=== PATIENT | male | born 1950 | race Caucasian/White ===

== ENCOUNTER 2016-12-17 07:32 | Day surgery (SDC) | payer MEDICARE ==
--- NOTE | 2016-12-06 12:27 | P.GSHP ---
History of Present Illness H&P Date: 12/06/16 Chief Complaint: Left inguinal hernia Patient seen in the office with complaints of a bulge in the left groin. This is painful at times. It is been there for 10 years but only recently has had discomfort there. Denies nausea vomiting. No change in bowel habits. He has a history of previous open repair in 2003 on the right side. Pain does radiate to the testicle at times. Past Medical History Past Medical History: No Reported History Additional Past Medical History / Comment(s): chronic cough, FX NOSE, PASSING OUT X 3,CHRONIC RASH TO LEGS AND ARMS History of Any Multi-Drug Resistant Organisms: None Reported Past Surgical History: Hernia Repair Additional Past Surgical History / Comment(s): COLONOSCOPY Additional Past Anesthesia/Blood Transfusion Reaction / Comment(s): HAD HARD TIME WAKING UP AFTER COLONOSCOPY Smoking Status: Never smoker - Past Family History Brother(s) Family Medical History: Cancer Additional Family Medical History / Comment(s): PROSTATE Medications and Allergies Home Medications Medication Instructions Recorded Confirmed Type Montelukast Sodium [Singulair] 10 mg PO HS 10/14/14 10/25/14 History Focus Select Eye Vitamin 1 tab PO DAILY 10/25/14 10/25/14 History Naturemade Vitamin C Drink 1 dose PO DAILY PRN 10/25/14 10/25/14 History guaiFENesin-DM 100-10MG/5ML 10 ml PO DAILY PRN 10/25/14 10/25/14 History [Robitussin Dm] Allergies Allergy/AdvReac Type Severity Reaction Status Date / Time No Known Allergies Allergy Verified 10/25/14 12:53 Surgical - Exam Physical exam: General: Well-developed, well-nourished HEENT: Normocephalic, sclerae nonicteric Abdomen: Nontender, nondistended, reducible left inguinal hernia noted, both testes normal Extremities: No edema Neuro: Alert and oriented Assessment and Plan (1) Left inguinal hernia Narrative/Plan: Patient I discussed the options of laparoscopic versus open repair. The patient is not interested in a laparoscopic approach as he felt he did quite well with the prior surgery in 2003. The risks of bleeding, infection, chronic pain, recurrence, and visceral injury were discussed. He understands and wishes to proceed. Status: Acute
[~2016-12-17 07:32] MED LIST: DEXAMETHASONE SOD PHOSPHATE 10 MG/ML 1 ML VIAL IV ONE; HEPARIN SODIUM,PORCINE 5,000 UNIT/ML 1 ML VIAL SQ ONE; HYDROmorphone 1 MG/ML 1 ML SYRINGE IVP PRN; LACTATED RINGERS 1,000 ML IV SCH; LIDOCAINE 1% 20 ML VIAL (10MG/ML) FOR IV START INTRADERMA PRN; ONDANSETRON 4 MG/2 ML VIAL IVP ONE; ceFAZolin 2 GM in SODIUM CHLORIDE 0.9% 100 ML IVPB ONE
[2016-12-17] MEDS ORDERED: BUPIVACAIN-EPI 0.25%-1:200,000 30 ML VIAL SQ ONE ×2 (08:08)
[2016-12-17 08:09] VITALS: TEMP 96.8
[2016-12-17] MEDS ORDERED: SUCCINYLCHOLINE CHLORIDE 100 MG/5 ML SYR IV ONE (08:31)
[2016-12-17] MEDS ORDERED: PROPOFOL 10 MG/ML 20 ML VIAL IV ONE (08:31)
[2016-12-17] MEDS ORDERED: LIDOCAINE 1% INJ 10MG/ML (20 ML MDV) ONE (08:31)
[2016-12-17] MEDS ORDERED: NEOSTIGMINE 1 MG/ML 10 ML VIAL ONE (08:31)
[2016-12-17] MEDS ORDERED: ROCURONIUM BROMIDE 10 MG/ML 10 ML VIAL IV ONE (08:31)
[2016-12-17] MEDS ORDERED: MIDAZOLAM 2 MG/2 ML VIAL ONE (08:31)
[2016-12-17] MEDS ORDERED: fentaNYL (PF) 50 MCG/ML 2 ML AMP ONE (08:31)
[2016-12-17] MEDS ORDERED: LACTATED RINGERS 1,000 ML IV ONE ×2 (08:31→09:05)
[2016-12-17] MEDS ORDERED: GLYCOPYRROLATE 0.2 MG/ML 2 ML VIAL ONE (08:31)
[2016-12-17] MEDS ORDERED: HYDROcodone/APAP 5-325MG 1 EACH TAB PO PRN (09:48)
[2016-12-17] MEDS ORDERED: NALOXONE 0.4 MG/ML 1 ML VIAL IV PRN (09:48)
--- NOTE | 2016-12-17 10:02 | P.PCN ---
Date of Procedure: 12/17/16 Preoperative Diagnosis: Postoperative Diagnosis: Procedure(s) Performed: PREOPERATIVE DIAGNOSIS: Left inguinal hernia POSTOPERATIVE DIAGNOSIS: Same PROCEDURE: Left inguinal herniorrhaphy SURGEON: Lilian EBL: Minimal ANESTHESIA: General COMPLICATIONS: None OPERATIVE PROCEDURE: The patient is brought and placed on the operating table in the supine position. The patient was placed under general anesthesia at that time. And incision was made obliquely in the left groin. The subcutaneous tissues were dissected using electro cautery. The external oblique was incised with a scalpel. This was lengthened using a Metzenbaum scissors. The spermatic cord structures were encircled with a [place] drain and dissected carefully. The patient had a direct hernia defect. A portion of the attenuated transversalis fascia was excised. The preperitoneal space was carefully dissected. A medium Prolene hernia system was chosen. The inner circular portion of the mesh was placed within the pre-peroneal space and flattened out appropriately. The outer oval portion of mesh was slit and wrapped around the spermatic cord and sutured back to itself. The mesh was then sutured to the pubic tubercle, the folding edge of the inguinal ligament, and the conjoined tendon. The external oblique was then reapproximated using a running 2-0 Vicryl suture. The subcutaneous tissues were reapproximated using interrupted 3-0 Vicryl sutures and the skin using a running 4-0 Monocryl stitch. Steri-Strips and sterile dressings then applied. At the end of the procedure the sponge needle and counts were all correct. DISPOSITION: Stable to recovery room Implants: Indications for Procedure: Operative Findings: Description of Procedure:
[2016-12-17 11:48] VITALS: RESP 18
[2016-12-17 14:05] VITALS: BP 90/62; PULSE 69
[2016-12-17] MEDS ORDERED: TAMSULOSIN 0.4 MG CAP.ER.24H PO STA (14:15)
== END 2016-12-17 14:54 | disposition home or self-care (01) ==
LOC: OR 07:32
PROVIDERS: ATTEND Surgery
DX: K40.90 Unilateral inguinal hernia, without obstruction or gangrene, not specified as recurrent (principal); K21.9 Gastro-esophageal reflux disease without esophagitis; R05 Cough; Z79.82 Long term (current) use of aspirin; Z79.899 Other long term (current) drug therapy
CPT/HCPCS: 49505; C1781; J2250; J1644; J1100; J2710; J0690; J2405; J2001; J3010; J0330; J2704

== ENCOUNTER 2016-12-19 19:41 | Emergency (ER) | payer MEDICARE ==
--- NOTE | 2016-12-19 21:05 | ED ---
General Adult HPI - General Chief complaint: Recheck/Abnormal Lab/Rx Stated complaint: Male Time Seen by Provider: 12/19/16 20:57 Source: patient, RN notes reviewed Mode of arrival: ambulatory Limitations: no limitations - History of Present Illness Initial comments: 66-year-old male presents to the emergency department with a chief complaint of inability to urinate. Patient states that he had hernia repair by Dr. franco on Thursday. Patient states that he went home and he had no problem urinating yesterday but today he is only been able to dribble very tiny amounts out is feeling a lot of fullness in the bladder. Patient states she's having a lot of lower abdominal discomfort with this. Patient denies any fever chills cough cold Raynaud's. Patient denies any odor to the urine. Patient states that he was concerned due to his symptoms so he thought that he should be evaluated. Patient denies any recent fever, chills, shortness of breath, chest pain, back pain, nausea vomiting, numbness or tingling, dysuria or hematuria, constipation or diarrhea, headaches or visual changes, or any other current symptoms. - Related Data Home Medications Medication Instructions Recorded Confirmed Montelukast Sodium [Singulair] 10 mg PO HS 10/14/14 12/17/16 Focus Select Eye Vitamin 1 tab PO DAILY 10/25/14 12/17/16 Naturemade Vitamin C Drink 1 dose PO DAILY PRN 10/25/14 12/17/16 Ascorbic Acid [Vitamin C] 500 mg PO DAILY 12/11/16 12/17/16 Cholecalciferol (Vitamin D3) 2,000 unit PO DAILY 12/11/16 12/17/16 [Vitamin D3] Previous Rx's Medication Instructions Recorded Hydrocodone/Acetaminophen [[place] 1 - 2 each PO Q4HR PRN #30 tab 12/17/16 5-325] Allergies Allergy/AdvReac Type Severity Reaction Status Date / Time dust AdvReac Cough Uncoded 12/19/16 20:22 Review of Systems ROS Statement: Those systems with pertinent positive or pertinent negative responses have been documented in the HPI. ROS Other: All systems not noted in ROS Statement are negative. Past Medical History Past Medical History: No Reported History Additional Past Medical History / Comment(s): chronic cough, FX NOSE History of Any Multi-Drug Resistant Organisms: None Reported Past Surgical History: Hernia Repair Additional Past Surgical History / Comment(s): COLONOSCOPY Additional Past Anesthesia/Blood Transfusion Reaction / Comment(s): HAD HARD TIME WAKING UP AFTER COLONOSCOPY Past Psychological History: No Psychological Hx Reported Smoking Status: Never smoker Past Alcohol Use History: None Reported Past Drug Use History: None Reported - Past Family History Brother(s) Family Medical History: Cancer Additional Family Medical History / Comment(s): PROSTATE General Exam - General Exam Comments Initial Comments: General: The patient is awake and alert, in no distress, and does not appear acutely ill. Eye: Pupils are equal. Ears, nose, mouth and throat: There are moist mucous membranes. Neck: The neck is supple, there is no tenderness. Cardiovascular: There is a regular rate and rhythm. No murmur, rub or gallop is appreciated. Respiratory: Lungs are clear to auscultation, respirations are non-labored, breath sounds are equal. No wheezes, stridor, rales, or rhonchi. Gastrointestinal: Hard and distended over the bladder non-tender abdomen without masses or organomegaly noted. There is no rebound or guarding present. No CVA tenderness. Bowel sounds are unremarkable. Neurological: CN II-XII intact, There are no obvious motor or sensory deficits. Coordination appears grossly intact. Speech is normal. Skin: Skin is warm and dry and no rashes or lesions are noted. Psychiatric: Cooperative, appropriate mood & affect, normal judgment. Limitations: no limitations Course Vital Signs 12/19/16 20:19 Temperature 98.9 F Pulse Rate 75 Respiratory 18 Rate Blood Pressure 138/75 O2 Sat by Pulse 98 Oximetry Medical Decision Making - Medical Decision Making 66-year-old male presents to the emergency department with a chief complaint of urinary retention at this time patient is found to be in urinary retention urine was reviewed and negative. This time is likely due to the recent procedure. This time we discussed close follow-up with urology and he is given information. Discussed return parameters all patient's questions. He stated he understood. Plan. All questions have been answered. He will be discharged. - Lab Data Lab Results 12/19/16 Range/Units 21:22 Urine Color Yellow Urine Appearance Clear (Clear) Urine pH 7.0 (5.0-8.0) Ur Specific [place] 1.009 (1.001-1.035) Urine Protein Negative (Negative) Urine Glucose (UA) Negative (Negative) Urine Ketones Trace H (Negative) Urine Blood Negative (Negative) Urine Nitrite Negative (Negative) Urine Bilirubin Negative (Negative) Urine Urobilinogen <2.0 (<2.0) mg/dL Ur Leukocyte Esterase Negative (Negative) Disposition Clinical Impression: Urinary retention Disposition: HOME SELF-CARE Condition: Stable Instructions: Urinary Retention in Men (ED) Additional Instructions: Please follow up with family doctor if symptoms have not improved over the next two days. Please return to the emergency room if your symptoms increase or worsen or for any other concerns. Referrals: Odalis Ravi MD [Primary Care Provider] - 1-2 days Holland Womack MD [STAFF PHYSICIAN] - 1-2 days Time of Disposition: 22:02
[2016-12-19 21:55] LABS: Appearance,Urine Clear (Clear); Bilirubin,Urine Negative (Negative); Glucose,Urine (UA) Negative (Negative); Ketones,Urine Trace (Negative); Leukocyte Esterase,Urine Negative (Negative); Nitrite,Urine Negative (Negative); Protein,Urine Negative (Negative); Specific Gravity,Urine 1.009 (1.001-1.035); UA Billing (MACRO vs. MICRO) CHEM; Urobilinogen,Urine <2.0 mg/dL (<2.0)
[2016-12-19 22:17] VITALS: BP 142/66; PULSE 79; RESP 16; TEMP 98
== END 2016-12-19 22:16 | disposition home or self-care (01) ==
LOC: EC 19:41
DX: R33.9 Retention of urine, unspecified (principal); Z98.890 Other specified postprocedural states; Z91.09 Other allergy status, other than to drugs and biological substances; Z79.899 Other long term (current) drug therapy
CPT/HCPCS: 51702; 51798; 81003; 87086; 99284

== ENCOUNTER → 2017-01-12 | Outpatient (CLI) | payer MEDICARE ==
--- NOTE | 2017-01-12 13:55 | US ---
EXAMINATION TYPE: US bladder DATE OF EXAM: 01/12/2017 COMPARISON: NONE CLINICAL HISTORY: N40.1 Benign prostatic hyperplasia with lower urinary tract symptoms. EXAM MEASUREMENTS: Post Void Residual Volume: 14.2 ml technically was second post void as patient still had 239.3ml aft er voiding 5 minutes prior to initial US exam as patient could no longer wait for order clarification from physician's office. Color Doppler performed to assess ureteral jets. Bilateral Jets seen: yes Normal Post Void Residual (less than 50ml): yes, at second post void assessment. Enlarged prostat e gland is noted with volume of 48.5ml (nl <30 ml). The enlarged prostate gland places mass effect up on the urinary bladder. No trabeculation is seen of the urinary bladder wall. No urinary bladder wall thickening. IMPRESSION: 1. Post void residual of 239.3 mL 5 minutes after voiding with normal post void residual after the se cond attempt. 2. Enlarged and heterogenous prostate gland with impression upon the urinary bladder.
== END | disposition home or self-care (01) ==
LOC: RADUSWWP 12:26
PROVIDERS: ATTEND Family Medicine
DX: N40.0 Benign prostatic hyperplasia without lower urinary tract symptoms (principal)
CPT/HCPCS: 76857

== ENCOUNTER → 2017-01-30 | Outpatient (CLI) | payer MEDICARE ==
--- NOTE | 2017-01-30 14:35 | US ---
EXAMINATION TYPE: US extremity nonvasculr ltd LT DATE OF EXAM: 01/30/2017 COMPARISON: NONE CLINICAL HISTORY: M71.22 SYNOVIAL CYST OF POPLITEAL SPACE LT KNEE. 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 Complex fluid collection in the left popliteal fossa most likely related to popliteal cyst.
== END | disposition home or self-care (01) ==
LOC: RADUSWWP 12:13
PROVIDERS: ATTEND Family Medicine
DX: M71.22 Synovial cyst of popliteal space [Baker], left knee (principal)

== ENCOUNTER → 2018-01-26 | Outpatient (CLI) | payer MEDICARE, OTHER ==
--- NOTE | 2018-01-27 09:35 | CT ---
EXAMINATION TYPE: CT pelvis w con DATE OF EXAM: 01/26/2018 COMPARISON: None HISTORY: PELVIC TIGHTNESS, HX OF HERNIA CT DLP: 477 mGycm Automated exposure control for dose reduction was used. CONTRAST: Performed with IV Contrast, patient injected with 100 mL of Isovue 300. CT of the pelvis was performed from the lower level of the kidneys through the inferior pubic rami. GI contrast was utilized. FINDINGS: I do not see evidence for hernia at this time. The prostate gland is enlarged and demonstrates transv erse measurement of 5.9 cm. No pelvic masses are identified. There is no evidence for adenopathy. Uri nary bladder is unremarkable. Visualized gastrointestinal tract is of normal caliber. Degenerative ch peyton lumbar spine with grade 1 anterolisthesis L5 on S1. IMPRESSION: 1. PROSTATOMEGALY. 2. NO EVIDENCE FOR HERNIA OR ACUTE PROCESS.
== END | disposition home or self-care (01) ==
LOC: RADCTMAIN 15:52
PROVIDERS: ATTEND Family Medicine
DX: N40.0 Benign prostatic hyperplasia without lower urinary tract symptoms (principal)
CPT/HCPCS: 72193; Q9967

== ENCOUNTER → 2018-03-23 | Day surgery (SDC) | payer MEDICARE, OTHER ==
[2018-03-19 15:39] VITALS: BMI 19.1
[~2018-03-23] MED LIST changes: -DEXAMETHASONE SOD PHOSPHATE 10 MG/ML 1 ML VIAL IV ONE; -HEPARIN SODIUM,PORCINE 5,000 UNIT/ML 1 ML VIAL SQ ONE; -HYDROmorphone 1 MG/ML 1 ML SYRINGE IVP PRN; +LACTATED RINGERS 1,000 ML IV ONE; -LACTATED RINGERS 1,000 ML IV SCH; +LIDOCAINE 1% 20 ML VIAL (10MG/ML) FOR IV START INTRADERMA ONE; -LIDOCAINE 1% 20 ML VIAL (10MG/ML) FOR IV START INTRADERMA PRN; -ONDANSETRON 4 MG/2 ML VIAL IVP ONE; +PROPOFOL 10 MG/ML 20 ML VIAL IV ONE; -ceFAZolin 2 GM in SODIUM CHLORIDE 0.9% 100 ML IVPB ONE
[2018-03-23 09:23] VITALS: TEMP 98
[2018-03-23 10:41] VITALS: PULSE 58
--- NOTE | 2018-03-23 10:45 | P.PCN ---
Date of Procedure: 03/23/18 Procedure(s) Performed: procedure: Total colonoscopy. Preoperative diagnosis: Screening for neoplasia, patient has history of polyps. Postoperative diagnosis: Exam within normal limits. Preparation: HalfLytely prep. Sedation: Was provided by anesthesia. Brief clinical history: The patient is a 67-year-old male who is scheduled for this evaluation for screening for neoplasia because of history of polyps. His last exam was in 2008. The patient has no abdominal complaints, bleeding or anemia. Procedure: With the patient on his left lateral decubitus position and after informed consent and adequate sedation, the perianal area was inspected and it did not show any fissures or fistulas. There were no masses felt on digital rectal examination. The Olympus CFQ 160L video colonoscope was initially used and was inserted in the rectum and advanced in the usual fashion, however, I was not able to advance it safely in the sigmoid. The endoscope was exchanged for the PCFH 190L video colonoscope which was advanced without difficulty to the cecum. The mucosa appeared healthy. No polyps or tumors were seen or any obvious diverticular disease or other pathology. I retroflexed the endoscope in the rectum before the endoscope was withdrawn. The patient tolerated the procedure well. Plan: The patient was reassured. He will follow up with you as planned and I recommended repeat exam in 10 years depending on his overall health at that time.
[2018-03-23 11:07] VITALS: BP 122/73; RESP 18
== END | disposition home or self-care (01) ==
LOC: ORWHC2ENDO 08:36
DX: Z12.11 Encounter for screening for malignant neoplasm of colon (principal); Z86.010 Personal history of colon polyps; J44.9 Chronic obstructive pulmonary disease, unspecified; I45.9 Conduction disorder, unspecified; Z79.899 Other long term (current) drug therapy; Z87.891 Personal history of nicotine dependence
CPT/HCPCS: J2704; G0105; 45378

== ENCOUNTER → 2018-08-11 | Outpatient (CLI) | payer MEDICARE, OTHER | LOC: RADUSWWP 06:46 | DX: I73.89 Other specified peripheral vascular diseases (principal) | CPT/HCPCS: 93922 ==

== ENCOUNTER 2019-01-25 20:15 | Emergency (ER) | payer MEDICARE, OTHER ==
[2019-01-25] MEDS ORDERED: IPRATROPIUM-ALBUTEROL 3 ML NEB INHALATION STA (21:03)
--- NOTE | 2019-01-25 21:05 | ED ---
General Adult HPI - General Chief complaint: Shortness of Breath Stated complaint: GYPSY, Sore throat Time Seen by Provider: 01/25/19 20:51 Source: patient, RN notes reviewed Mode of arrival: ambulatory Limitations: no limitations - History of Present Illness Initial comments: Patient is a pleasant 68-year-old male presenting to emergency department with sore throat. Onset of symptoms was yesterday. Symptoms have progressively worsened since that time. Patient does complain of a scratchy throat. Patient states he feels somewhat short of breath. In between his throat and his nose. Patient does not feel his dyspnea is related to his lungs. Patient does have a history of asthma however does not feel that is causing his symptoms. No fevers. Patient states it does have to swallow. - Related Data Home Medications Medication Instructions Recorded Confirmed Montelukast Sodium [Singulair] 10 mg PO HS 10/14/14 01/25/19 Ascorbic Acid [Vitamin C with Olya 500 mg PO DAILY 03/19/18 01/25/19 Hips] Phenylephrine/Dm/Acetaminop/GG 5 ml PO BID PRN 01/25/19 01/25/19 [Mucinex Fast-Max Cold-Flu Liq] Vit C/E/Zn/Coppr/Lutein/Zeaxan 1 cap PO DAILY 01/25/19 01/25/19 [Preservision Areds 2 Softgel] Vitamin E 100 unit PO DAILY 01/25/19 01/25/19 Previous Rx's Medication Instructions Recorded Amoxic-Pot Clav 875-125Mg 1 tab PO Q12HR #14 tablet 01/25/19 [Augmentin 875-125] Dexamethasone 4 mg PO BID #6 tablet 01/25/19 Allergies Allergy/AdvReac Type Severity Reaction Status Date / Time mold AdvReac Unknown Cough Verified 01/25/19 21:16 dust AdvReac Cough Uncoded 01/25/19 21:16 Review of Systems ROS Statement: Those systems with pertinent positive or pertinent negative responses have been documented in the HPI. ROS Other: All systems not noted in ROS Statement are negative. Constitutional: Denies: fever Eyes: Denies: eye pain ENT: Reports: throat pain, congestion. Denies: ear pain Respiratory: Reports: as per HPI, cough (Slightly more than normal) Cardiovascular: Denies: chest pain Endocrine: Denies: fatigue Gastrointestinal: Denies: abdominal pain Genitourinary: Denies: dysuria Musculoskeletal: Denies: back pain Skin: Denies: rash Neurological: Denies: weakness Past Medical History Past Medical History: Cancer Additional Past Medical History / Comment(s): HX OF COLON POLYPS, YEAR ROUND ALLERGIES, CHRONIC COUGH., HX FX NOSE., ENLARGED PROSTATE. History of Any Multi-Drug Resistant Organisms: None Reported Past Surgical History: Hernia Repair, Orthopedic Surgery Additional Past Surgical History / Comment(s): ARTHROSCOPY LEFT KNEE, COLONOSCOPY, JUSTINA INGUINAL HERNIA. Past Anesthesia/Blood Transfusion Reactions: Previous Problems w/ Anesthesia Additional Past Anesthesia/Blood Transfusion Reaction / Comment(s): HAD HARD TIME WAKING UP AFTER PREV. COLONOSCOPY AND BLOOD PRESSURE DROPPED. Past Psychological History: No Psychological Hx Reported Smoking Status: Never smoker Past Alcohol Use History: Rare Past Drug Use History: None Reported - Past Family History Brother(s) Family Medical History: Cancer Additional Family Medical History / Comment(s): PROSTATE General Exam Limitations: no limitations General appearance: alert, in no apparent distress Head exam: Present: atraumatic Eye exam: Present: normal appearance, PERRL ENT exam: Present: other (Mild pharyngeal cobblestoning) Neck exam: Present: normal inspection. Absent: tenderness, meningismus, lymphadenopathy Respiratory exam: Present: rhonchi. Absent: respiratory distress, accessory muscle use Cardiovascular Exam: Present: regular rate, normal rhythm GI/Abdominal exam: Present: soft. Absent: tenderness Extremities exam: Present: normal inspection. Absent: pedal edema, calf tenderness Neurological exam: Present: alert Psychiatric exam: Present: normal affect, normal mood Skin exam: Present: normal color Course Vital Signs 01/25/19 01/25/19 01/25/19 20:40 20:44 21:45 Temperature 98.8 F Pulse Rate 90 74 Respiratory 22 16 Rate Blood Pressure 111/73 O2 Sat by Pulse 99 98 Oximetry 01/25/19 21:54 Temperature Pulse Rate 76 Respiratory 16 Rate Blood Pressure O2 Sat by Pulse Oximetry Medical Decision Making - Medical Decision Making Patient reevaluated and resting comfortably in bed. Patient and family updated on results and need for follow-up. - Lab Data Lab Results 01/25/19 Range/Units 21:22 Group A Strep Rapid Negative (Negative) - Radiology Data Radiology results: image reviewed (Chest x-ray and soft tissue neck x-ray shows no acute process) Disposition Clinical Impression: Sinusitis, Pharyngitis Disposition: HOME SELF-CARE Condition: Stable Instructions (If sedation given, give patient instructions): Pharyngitis (ED), Sinusitis (ED) Additional Instructions: Please follow-up with primary care physician in the next day or 2 for recheck. Return for difficulty in breathing, unable to swallow, fevers, worsening symptoms or any other concerns. Prescriptions: Amoxic-Pot Clav 875-125Mg [Augmentin 875-125] 1 tab PO Q12HR #14 tablet Dexamethasone 4 mg PO BID #6 tablet Is patient prescribed a controlled substance at d/c from ED?: No Referrals: Odalis Ravi MD [Primary Care Provider] - 1-2 days Time of Disposition: 22:52
--- NOTE | 2019-01-25 22:32 | XR ---
EXAM: XR Chest, 2 Views CLINICAL HISTORY: Dyspnea TECHNIQUE: Frontal and lateral views of the chest. COMPARISON: Chest x-ray dated 10/14/2014 FINDINGS: Lungs: Unremarkable. No consolidation. Pleural space: Unremarkable. No pneumothorax. Heart: Unremarkable. No cardiomegaly. Mediastinum: Unremarkable. Bones/joints: Unremarkable. IMPRESSION: Normal chest x-rays.
--- NOTE | 2019-01-25 22:33 | XR ---
EXAM: XR Soft Tissue Neck CLINICAL HISTORY: Pain TECHNIQUE: Frontal and lateral views of the soft tissues of the neck. COMPARISON: No relevant prior studies available. FINDINGS: Airway: Airways are patent. Bones/joints: No acute fracture or traumatic malalignment. Multilevel degenerative changes. Soft tissues: Unremarkable. No abnormal soft tissue prominence. Normal epiglottis. IMPRESSION: No acute findings.
[2019-01-25] MEDS ORDERED: DEXAMETHASONE 4 MG TAB PO STA (22:52)
[2019-01-25 23:10] VITALS: BP 134/80; PULSE 98; RESP 18; TEMP 99.3
== END 2019-01-25 23:16 | disposition home or self-care (01) ==
LOC: EC 20:15
DX: J02.9 Acute pharyngitis, unspecified (principal); J32.9 Chronic sinusitis, unspecified; J45.909 Unspecified asthma, uncomplicated; Z91.048 Other nonmedicinal substance allergy status; Z79.899 Other long term (current) drug therapy; Z85.9 Personal history of malignant neoplasm, unspecified
CPT/HCPCS: 94640; 87081; 87430; 70360; 71046; 99285; J8540

== ENCOUNTER → 2019-07-12 | Outpatient (CLI) | payer OTHER ==
[2019-07-12 12:54] LABS: African American GFR (CKD) >90 (>60 ml/min/1.73 sqM); Blood Urea Nitrogen 14 mg/dL (9-20); Non-African American GFR(CKD) 84 (>60 ml/min/1.73 sqM)
--- NOTE | 2019-07-14 19:42 | CT ---
EXAMINATION TYPE: CT abdomen pelvis wo/w con DATE OF EXAM: 07/13/2019 COMPARISON: CT pelvis 01/26/2018 HISTORY: Lower abdominal pain CT DLP: 364.3 mGycm Automated exposure control for dose reduction was used. TECHNIQUE: Helical acquisition of images was performed from the lung bases through the pelvis. CONTRAST: Performed with Oral Contrast and without and with IV Contrast, patient injected with 100 mL of Isovue 300. FINDINGS: LUNG BASES: No significant abnormality is appreciated. LIVER/GB: No significant abnormality is appreciated. PANCREAS: No significant abnormality is seen. SPLEEN: No significant abnormality is seen. ADRENALS: No significant abnormality is seen. KIDNEYS: No significant abnormality is seen. FREE AIR: No free air is visualized. RETROPERITONEAL ADENOPATHY: None visualized REPRODUCTIVE ORGANS: Prostate is markedly enlarged. URINARY BLADDER: No significant abnormality is seen. PELVIC ADENOPATHY: None visualized. 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 There is anterolisthesis grade 1 L5-S1 , retrolisthesis grade 1 L4-5. Multilevel degenerative disc disease, facet arthropathy, spinal curvat ure noted. Possible old avulsion injury at the level of the origin of the hamstring musculature on th e right, calcification is present just distal to the ischial tuberosity. BOWEL: No significant abnormality is seen. OTHER: IMPRESSION: PROSTATIC ENLARGEMENT. ADDITIONAL FINDINGS ABOVE.
== END | disposition home or self-care (01) ==
LOC: RADCTMAIN 11:47
DX: N40.0 Benign prostatic hyperplasia without lower urinary tract symptoms (principal); R10.30 Lower abdominal pain, unspecified
CPT/HCPCS: 82565; 84520; 74178; 36415; Q9967